=== PATIENT | female | born 1995 | race Caucasian/White ===

== ENCOUNTER → 2019-12-31 16:57 | Outpatient (CLI) | payer OTHER, SELFPAY ==
[2019-12-31 14:38] VITALS: BMI 34.4
[2020-01-03 15:22] LABS: HPV Reflexed? NOT INDICATED
== END ==
PROVIDERS: PCP Family Medicine; Referring Provider Nurse Practitioner Women's Health; Visit Provider Nurse Practitioner Women's Health
DX: Z12.4 Encounter for screening for malignant neoplasm of cervix (principal)
CPT/HCPCS: 88175; G0145

== ENCOUNTER → 2021-04-15 10:42 | Outpatient (CLI) | payer OTHER, SELFPAY | PROVIDERS: Visit Provider Family Medicine | DX: Z23 Encounter for immunization (principal) | CPT/HCPCS: 0004A; 91300 ==

== ENCOUNTER → 2022-07-13 | Outpatient (CLI) | payer OTHER, SELFPAY ==
[2022-07-13 10:43] LABS: Mucous, Urine 0 SEEN /hpf (<or=2+); Red Blood Cells-Urine 0 SEEN /hpf (0-5)
[2022-07-13 10:47] LABS: Color, Urine Yellow (Yellow); Glucose, Dipstick Normal (Normal); Ketone-Dipstick Negative (Negative); Leukocyte Esterase-Dipstick 25 /ul (Negative); Nitrite-Dipstick Negative (Negative); Occult Blood-Urine 25 /ul (Negative); Protein-Dipstick 15 mg/dl (Negative); Urine Bilirubin Dipstick Negative (Negative); Urine Clarity Clear (Clear); Urine Urobilinogen Normal (Normal)
[2022-07-13 10:55] LABS: Bacteria 1+ /hpf (None Seen); Squamous Epithelial Cells - UA 0-5 SEEN /hpf (5-10); White Blood Cells 5-10 SEEN /hpf (0-5)
== END | disposition home or self-care (01) ==
PROVIDERS: PCP Student in an Organized Health Care Education/Training Program; Visit Provider Physician Assistant Surgical
DX: R30.0 Dysuria (principal)
CPT/HCPCS: 81001; 87086; 87088; 87186

== ENCOUNTER → 2022-07-30 | Outpatient (CLI) | payer OTHER, SELFPAY | END | disposition home or self-care (01) | LOC: PAVLAB 07:46 | PROVIDERS: PCP Student in an Organized Health Care Education/Training Program; Referring Provider Nurse Practitioner Women's Health; Visit Provider Nurse Practitioner Women's Health | DX: N92.6 Irregular menstruation, unspecified (principal) | CPT/HCPCS: 36415 ==

== ENCOUNTER → 2022-08-17 | Outpatient (CLI) | payer OTHER, SELFPAY ==
[2022-08-17 12:07] LABS: Progesterone Level 0.52 ng/mL (See Comment)
== END | disposition home or self-care (01) ==
LOC: PAVLAB 10:57
PROVIDERS: PCP Student in an Organized Health Care Education/Training Program; Referring Provider Nurse Practitioner Women's Health; Visit Provider Nurse Practitioner Women's Health
DX: N92.6 Irregular menstruation, unspecified (principal)
CPT/HCPCS: 36415; 84144

== ENCOUNTER → 2022-09-08 | Outpatient (CLI) | payer OTHER, SELFPAY ==
[2022-09-08 08:42] LABS: Progesterone Level 8.34 ng/mL (See Comment)
== END | disposition home or self-care (01) ==
LOC: PAVLAB 07:53
PROVIDERS: PCP Student in an Organized Health Care Education/Training Program; Referring Provider Nurse Practitioner Women's Health; Visit Provider Nurse Practitioner Women's Health
DX: N92.6 Irregular menstruation, unspecified (principal)
CPT/HCPCS: 36415; 84144

== ENCOUNTER → 2022-09-16 | Outpatient (CLI) | payer OTHER, SELFPAY ==
[2022-09-16 13:31] LABS: hCG Titer Quant., Serum 13 mIU/mL (1-3)
== END | disposition home or self-care (01) ==
LOC: PAVLAB 12:37
PROVIDERS: PCP Student in an Organized Health Care Education/Training Program; Referring Provider Obstetrics & Gynecology; Visit Provider Obstetrics & Gynecology
DX: N91.2 Amenorrhea, unspecified (principal)
CPT/HCPCS: 36415; 84702

== ENCOUNTER → 2022-09-18 | Outpatient (CLI) | payer OTHER, SELFPAY ==
[2022-09-18 08:49] LABS: hCG Titer Quant., Serum 36 mIU/mL (1-3)
== END | disposition home or self-care (01) ==
LOC: LAB 07:35
PROVIDERS: PCP Student in an Organized Health Care Education/Training Program; Referring Provider Obstetrics & Gynecology; Visit Provider Obstetrics & Gynecology
DX: N91.2 Amenorrhea, unspecified (principal)
CPT/HCPCS: 36415; 84702

== ENCOUNTER → 2022-10-14 | Outpatient (CLI) | payer OTHER, SELFPAY ==
[2022-10-18 07:07] LABS: Chlamydia By Nucleic Acid AMP Negative (Negative); Gonococcus By Nucleic Acid AMP Negative (Negative)
[2022-10-25 19:02] LABS: HPV Reflexed? NOT INDICATED
== END | disposition home or self-care (01) ==
LOC: LABSPEC 12:05
PROVIDERS: PCP Student in an Organized Health Care Education/Training Program; Referring Provider Obstetrics & Gynecology; Visit Provider Obstetrics & Gynecology
DX: Z34.90 Encounter for supervision of normal pregnancy, unspecified, unspecified trimester (principal)
CPT/HCPCS: 87086; 87088; 87491; 87591; 88175; G0145

== ENCOUNTER → 2022-10-28 | Outpatient (CLI) | payer OTHER, SELFPAY ==
[2022-10-28 10:08] LABS: Absolute Lymphocyte Count 1.44 X10^3/uL (0.83-4.51); Absolute Neutrophil Count 6.5 X10^3/uL (2.0-7.7); Basophil# 0.06 X10^3/uL; Basophil% 0.7 % (0-1); Eosinophil# 0.24 X10^3/uL; Eosinophils% 2.7 % (0-5); Hemoglobin 12.4 g/dL (12.0-15.0); Lymphocyte # 1.44 X10^3/ul (0.83-4.51); Lymphocyte % 15.9 % (19-41); Mean Corp Hgb Conc 31.8 g/dL (32-36); Mean Corpuscular Hgb 27.3 pg (27.0-32.0); Mean Corpuscular Volume 85.9 fL (81-99); Mean Platelet Vol. 9.9 fl (6.2-12.0); Monocyte# 0.72 X10^3/uL; NRBC Flagged by Analyzer 0 % (0-5); Neutrophil # 6.52 X10^3/uL (2.7-7.7); Platelet Count 303 K/mm3 (150-450); RBC Distribution Width CV 13.8 % (11.6-14.6); RBC Distribution Width SD 43.1 fl (35.1-43.9); Red Blood Count 4.54 M/mm3 (4.2-5.4)
[2022-10-28 10:14] LABS: Glucose Challenge Gest 1H 50g 83 mg/dL (70-140)
[2022-10-28 10:31] LABS: NATERA MAILED SPECIMEN
[2022-10-28 11:07] LABS: HIV - WCH Non-Reactive (Nonreactive); Hepatitis B Surface Antigen Non-Reactive (Nonreactive); Hepatitis C Antibody Non-Reactive (Nonreactive); Rubella IgG Reactive (Nonreactive); Syphilis Antibodies Non-reactive
== END | disposition home or self-care (01) ==
LOC: PAVLAB 09:10
PROVIDERS: PCP Student in an Organized Health Care Education/Training Program; Referring Provider Obstetrics & Gynecology; Visit Provider Obstetrics & Gynecology
DX: Z34.81 Encounter for supervision of other normal pregnancy, first trimester (principal); Z31.430 Encounter of female for testing for genetic disease carrier status for procreative management
CPT/HCPCS: 36415; 82950; 85025; 86703; 86762; 86780; 86803; 86850; 86900; 86901; 87340

== ENCOUNTER → 2022-11-08 | Outpatient (CLI) | payer OTHER, SELFPAY ==
[2022-11-08 17:18] LABS: NATERA MAILED SPECIMEN
== END | disposition home or self-care (01) ==
LOC: LAB 16:14
PROVIDERS: PCP Student in an Organized Health Care Education/Training Program; Referring Provider Obstetrics & Gynecology; Visit Provider Obstetrics & Gynecology
DX: Z34.81 Encounter for supervision of other normal pregnancy, first trimester (principal); Z3A.00 Weeks of gestation of pregnancy not specified
CPT/HCPCS: 36415

== ENCOUNTER → 2022-12-02 | Outpatient (CLI) | payer OTHER, SELFPAY | END | disposition home or self-care (01) | LOC: LABSPEC 15:40 | PROVIDERS: PCP Student in an Organized Health Care Education/Training Program; Referring Provider Obstetrics & Gynecology; Visit Provider Obstetrics & Gynecology | DX: R30.0 Dysuria (principal) | CPT/HCPCS: 87086; 87088 ==

== ENCOUNTER → 2023-02-28 | Outpatient (CLI) | payer OTHER, SELFPAY ==
[2023-02-28 10:27] LABS: Absolute Lymphocyte Count 1.26 X10^3/uL (0.83-4.51); Absolute Neutrophil Count 8.5 X10^3/uL (2.0-7.7); Basophil# 0.06 X10^3/uL; Basophil% 0.6 % (0-1); Eosinophil# 0.07 X10^3/uL; Eosinophils% 0.7 % (0-5); Hematocrit 36.9 % (37-47); Hemoglobin 11.6 g/dL (12.0-15.0); Lymphocyte # 1.26 X10^3/ul (0.83-4.51); Lymphocyte % 11.8 % (19-41); Mean Corp Hgb Conc 31.4 g/dL (32-36); Mean Corpuscular Hgb 27.2 pg (27.0-32.0); Mean Corpuscular Volume 86.4 fL (81-99); Mean Platelet Vol. 10.2 fl (6.2-12.0); Monocyte% 6.6 % (0-10); NRBC Flagged by Analyzer 0 % (0-5); Neutrophil # 8.49 X10^3/uL (2.7-7.7); Neutrophil % 79.5 % (47-70); Platelet Count 318 K/mm3 (150-450); RBC Distribution Width CV 13.9 % (11.6-14.6); RBC Distribution Width SD 43.4 fl (35.1-43.9); Red Blood Count 4.27 M/mm3 (4.2-5.4); White Blood Count 10.7 K/mm3 (4.4-11.0)
[2023-02-28 11:26] LABS: HIV - WCH Non-Reactive (Nonreactive); Syphilis Antibodies Non-reactive
[2023-02-28 11:29] LABS: Glucose Challenge Gest 1H 50g 106 mg/dL (70-140)
[2023-02-28 19:09] LABS: Progesterone Level 74.26 ng/mL (See Comment)
== END | disposition home or self-care (01) ==
LOC: LAB 09:28
PROVIDERS: Nurse Practitioner Women's Health; PCP Student in an Organized Health Care Education/Training Program; Visit Provider Advanced Practice Midwife
DX: O09.90 Supervision of high risk pregnancy, unspecified, unspecified trimester (principal); Z3A.00 Weeks of gestation of pregnancy not specified
CPT/HCPCS: 36415; 82950; 84144; 85025; 86703; 86780

== ENCOUNTER → 2023-03-16 | Outpatient (CLI) | payer OTHER, SELFPAY | END | disposition home or self-care (01) | LOC: LABSPEC 16:42 | PROVIDERS: PCP Student in an Organized Health Care Education/Training Program; Referring Provider Registered Nurse; Visit Provider Registered Nurse | DX: N89.8 Other specified noninflammatory disorders of vagina (principal) | CPT/HCPCS: 87070; 87205 ==

== ENCOUNTER → 2023-05-03 | Outpatient (CLI) | payer OTHER, SELFPAY | END | disposition home or self-care (01) | LOC: LABSPEC 16:54 | PROVIDERS: PCP Student in an Organized Health Care Education/Training Program; Referring Provider Obstetrics & Gynecology; Visit Provider Obstetrics & Gynecology | DX: O09.90 Supervision of high risk pregnancy, unspecified, unspecified trimester (principal); Z3A.00 Weeks of gestation of pregnancy not specified | CPT/HCPCS: 87081 ==

== ENCOUNTER 2023-05-24 12:47 | Inpatient (IN) | payer OTHER, SELFPAY ==
[2023-05-24] VITALS (55 sets, daily range): BP systolic 111–151; BP diastolic 55–94; PULSE 84–155; TEMP 36.6–37.7; O2SAT 85–99; BMI 40.9
[2023-05-24] MEDS: Lactated Ringers 1,000 ML 50 ML IV (12:25)
[2023-05-24 12:43] LABS: Hemoglobin 12.8 g/dL (12.0-15.0); Mean Corp Hgb Conc 31.2 g/dL (32-36); Mean Corpuscular Hgb 25.9 pg (27.0-32.0); Mean Platelet Vol. 11.6 fl (6.2-12.0); Platelet Count 305 K/mm3 (150-450); RBC Distribution Width CV 15.1 % (11.6-14.6); RBC Distribution Width SD 44.8 fl (35.1-43.9); Red Blood Count 4.94 M/mm3 (4.2-5.4); White Blood Count 11.1 K/mm3 (4.4-11.0)
[2023-05-24 12:49] LABS: AST(SGOT) 23 U/L (15-37); Alanine Aminotransfer ALT/SGPT 21 U/L (13-56); Creatinine, Serum 0.56 mg/dL (0.55-1.02); EST Glomerular Filtration Rate 135 mL/min (>60); Est Glom Filt Rate - Afr Amer 164 mL/min (>60); Estimated Creatinine Clearance 123.72 ml/min; Uric Acid 4.3 mg/dL (2.6-6.0)
[2023-05-24 13:15] LABS: Protein, Urine (Random) 15.1 mg/dL (<11.9); Protein:Creat Ratio 250 mg/g CRE (0-200)
[2023-05-24] MEDS: LACTATED RINGERS 500 ML 999 ML IV (13:19)
[2023-05-24 13:45] LABS: Syphilis Antibodies Non-reactive
[2023-05-24] MEDS: fentaNYL-bupivacaine (epidural) 100 ML BAG EPIDURAL ×3 (14:46→23:56)
[2023-05-24] MEDS: Lactated Ringers 1,000 ML 999 ML IV (14:54)
--- NOTE | 2023-05-24 15:07 | EKG12_ITS ---
Test Reason : Blood Pressure : / mmHG Vent. Rate : 117 BPM Atrial Rate : 117 BPM P-R Int : 140 ms QRS Dur : 080 ms QT Int : 314 ms P-R-T Axes : 048 052 024 degrees QTc Int : 438 ms Sinus tachycardia Nonspecific T wave abnormality Abnormal ECG No previous ECGs available Confirmed by JAMES ORTIZ, KYLER ([id number]), film and video editor REGAN CHAVEZ ([id number]) on 05/26/2023 11:23:53 AM Referred By: Lori Petit Confirmed By:KYLER RAMIREZ MD
[2023-05-24] MEDS: CHLORHEXIDINE GLUC 2% CLOTH 1 EACH TOWELETTE TOPICAL (15:11)
--- NOTE | 2023-05-24 18:26 | PCM.HOSP.N ---
Hospitalist Note Called to look at an EKG ordered for tachycardia. Patient not having any chest pain or shortness of breath. EKG done only for tachycardia noted on vital signs. Patient is here with active labor. EKG is sinus tachycardia with a heart rate of 117. Intervals were normal. Patient had some mild nonspecific ST wave flattening in the lateral leads but no signs of acute ischemia or otherwise. We were not consulted for any medical management otherwise only asked to read the EKG.
[2023-05-24] MEDS: Mag Hydrox/Al Hydrox/Simeth 30 ML UDC PO (18:35)
[2023-05-24] MEDS: Oxytocin 15 Units/NS 250ml 15 UNITS/250 ML IV.SOLN 2 UNITS IV (18:45)
[2023-05-24] MEDS: Lactated Ringers 1,000 ML 200 ML IV (19:57)
[2023-05-25] VITALS (37 sets, daily range): BP systolic 89–139; BP diastolic 44–66; PULSE 78–114; RESP 16–18; TEMP 36.3–36.9; O2SAT 96–100
[2023-05-25] MEDS: Mag Hydrox/Al Hydrox/Simeth 30 ML UDC PO (00:19)
[2023-05-25] MEDS: Lactated Ringers 1,000 ML 200 ML IV (00:45)
--- NOTE | 2023-05-25 02:32 | HP.PCM.OB_ITS ---
HPI - General General Date of Admission: 05/24/23 HPI Narrative KOSTAS EDDY, is a 27 F who presents IAL reguar ctx and 4 cm dilated, elevate dbps Maternal Data Information FATIMAH Calculator Estimated Delivery Date Method Current WG Current Estimate 05/26/23 LMP (Certain) 39w 6d Other Estimates 05/28/23 Ultrasound #1 39w 4d PFSH PFSH Medical History (Updated 05/25/23 @ 02:[address] Lori Petit MD) Infertility Tinea corporis Home Medications prenat.vits,henry,fzx-srmf-ogjke 1 tab PO DAILY 06/15/22 [History Last Taken 05/23/23] Allergy/AdvReac Type Severity Reaction Status Date / Time cat dander Allergy Mild Other Verified 05/24/23 11:59 house dust Allergy Mild Other Verified 05/24/23 11:59 tree and shrub pollen Allergy Mild Other Verified 05/24/23 11:59 Family History Mother Hypertension Grandmother Hypertension Maternal Surgical History History of cholecystectomy [place] teeth extracted Social History adopted: No household members: spouse current occupational status: employed current occupation: Composite Assembler @ [employer] current occupational exposures/hazards: No pets and animals: Yes pets and animals: dog(s) history of recent travel: No sexually active: Yes Smoking Status: Never smoker alcohol intake: current details: social- not while substance use type: does not use well-balanced diet: daily or most days caffeine: Yes Type: carbonated beverages Number of servings: 1 eating out: 1-3 times/week during the past year weight has: remained stable what type of physical activity do you participate in: walking frequency: 3-4 times per week duration: 15-30 minutes/day anatoliy/buddhism: Restorationism seatbelt use: always do you feel safe at home: Yes additional social history: - JORDAN (HVAC) Patient is a financial aide advisor at [employer] History 1 Elective abortions Hx Para 0 Spontaneous abortions Hx # Term Pregnancies Ectopic pregnancies Hx # Pregnancies Multiple births # of living children Visit Details Expected Delivery Route/Plan Labor Preferences- CB/BF classes: done labor support person: JORDAN. sister in law roger labor intervention preferences: none pain management options preferred: epidural cut cord/dad catch: yes : [] PP control planned: [] discussed possible routes of delivery and associated risks: [] special requests: [] Plans Covid status: discussed Flu vaccine: discussed- at work given Tdap vaccine:given Rhogam: na LARC form signed: signed movement and labor precautions reviewed. Problem list reviewed and updated with the most current plan of care details and appropriate orders placed. Relevant counseling for the gestational age provided. Continue routine care and follow up unless otherwise noted in visit notes/problem list details OB Flowsheet Initial Weight: 195 lb Date -?-?-?-?-?-?-?-?-?-?-?-?- EGA Weight BP Urine Prot -?-?-?-?-?-?-?-?-?-?-?-?- Glucose FHR FuHt Pres Dilation -?-?-?-?-?-?-?-?-?-?-?-?- Effaced St Visit Note 10/14/22 -?-?-?-?-?-?-?-?-?-?-?-?- 8w 0d 195 lb (+0 oz) 105/63 -?-?-?-?-?-?-?-?-?-?-?-?- 180 -?-?-?-?-?-?-?-?-?-?-?-?- JV- Letrozole pr egnancy JV- Letrozole . sin gle live IUP measuring 7 weeks 5 days and consistent with LMP. FATIMAH 05/26/23. Desires NIPT and carrier testing 11/08/22 -?-?-?-?-?-?-?-?-?-?-?-?- 11w 4d 198 lb (+3 lb) 121/78 Negative -?-?-?-?-?-?-?-?-?-?-?-?- Negative 175 -?-?-?-?-?-?-?-?-?-?-?-?- KW- no cramping, VB. Repeat NIPT. discussed NOB labs. formal US ordered 12/06/22 -?-?-?-?-?-?-?-?-?-?-?-?- 15w 4d 203 lb 2 oz (+8 lb 2 oz) 97/61 Negative -?-?-?-?-?-?-?-?-?-?-?-?- Negative 150 -?-?-?-?-?-?-?-?-?-?-?-?- SM- no vb crampi ng 01/11/23 -?-?-?-?-?-?-?-?-?-?-?-?- 20w 5d 208 lb 2 oz (+13 lb 2 oz) 130/68 Negative -?-?-?-?-?-?-?-?-?-?-?-?- Negative 154 -?-?-?-?-?-?-?-?-?-?-?-?- MH-No VB, LOF. F eeling some flutters, ant placenta. No concerns 02/11/23 -?-?-?-?-?-?-?-?-?-?-?-?- 25w 1d 213 lb 4 oz (+18 lb 4 oz) 100/57 Negative -?-?-?-?-?-?-?-?-?-?-?-?- Negative 155 26 -?-?-?-?-?-?-?-?-?-?-?-?- KW-no lof/vb/ctx . good fm. discussed CB classes. 03/03/23 -?-?-?-?-?-?-?-?-?-?-?-?- 28w 0d 215 lb 8 oz (+20 lb 8 oz) 118/71 Negative -?-?-?-?-?-?-?-?-?-?-?-?- Negative 155 30 -?-?-?-?-?-?-?-?-?-?-?-?- Kw-no lof/vb/ctx . good fm. ordered breast pump from insurance. passed glucose test. 03/16/23 -?-?-?-?-?-?-?-?-?-?-?-?- 29w 6d 220 lb 6 oz (+25 lb 6 oz) 98/64 Negative -?-?-?-?-?-?-?-?-?-?-?-?- Negative 140 31 -?-?-?-?-?-?-?-?-?-?-?-?- LC- no lof/vb/ct x. good fm. tdap today, will get flu through work. genital culture and bv today for increased discharge and odor. 03/29/23 -?-?-?-?-?-?-?-?-?-?-?-?- 31w 5d 219 lb 6 oz (+24 lb 6 oz) 118/84 -?-?-?-?-?-?-?-?-?-?-?-?- 145 32 -?-?-?-?-?-?-?-?-?-?-?-?- SM- no vb lof go od fm no regular ctx 04/12/23 -?-?-?-?-?-?-?-?-?-?-?-?- 33w 5d 223 lb 4 oz (+28 lb 4 oz) 112/79 -?-?-?-?-?-?-?-?-?-?-?-?- 150 35 Cephalic -?-?-?-?-?-?-?-?-?-?-?-?- JV- no lof, vagi nal bleeding, or dec fm. vtx on exam but meausuring large. consider growth scan at 36/37 weeks . 04/27/23 -?-?-?-?-?-?-?-?-?-?--?-?- 35w 6d 226 lb 8 oz (+31 lb 8 oz) 114/72 -?-?-?-?-?-?-?-?-?-?-?-?- 140 37 Cephalic -?-?-?-?-?-?-?-?-?-?-?-?- SM- no vb lof g ood fm no regular ctx 05/03/23 -?-?-?-?-?-?-?-?-?-?-?-?- 36w 5d 228 lb (+33 lb) 110/70 Negative -?-?-?-?-?-?-?-?-?-?-?-?- Negative 160 38 Cephalic 0 .5 -?-?-?-?-?-?-?-?-?-?-?-?- -3 MH-No VB , LOF. Good FM. GBS. Denies concerns 05/11/23 -?-?-?-?-?-?-?-?-?-?-?-?- 37w 6d 230 lb 8 oz (+35 lb 8 oz) 117/74 Negative -?-?-?-?-?-?-?-?-?-?-?-?- Negative 154 37.5 Cephalic 1 -?-?-?-?-?-?-?-?-?-?-?-?- 80 -2 JV- no lof , vaginal bleeding, or dec fm. no complaints other than wishes to be induced close to due date to avoid being in hospitla on . will sweep membranes next week and plan for IOL around due date. 05/20/23 -?-?-?-?-?-?-?-?-?-?-?-?- 39w 1d 231 lb 4 oz (+36 lb 4 oz) 116/73 Negative -?-?-?-?-?-?-?-?-?-?-?-?- Negative 150 38 41 Cephalic 2 -?-?-?-?-?-?-?-?-?-?-?-?- 80 -1 JV- IOL se t up for next for elevated bmi. growth scan for earlier in the week NST FHR Rate Baby A Baseline: 140 Variability:: Moderate Accelerations:: 15 x 15 Decelerations:: None NST Reactive:: Yes FHR Category:: Category I Uterine Activity:: q3-5 ROS Constitutional Constitutional: Reports systems reviewed and no addt'l complaints, except as documented ENT HEENT: Reports systems reviewed and no addt'l complaints, except as documented Cardiovascular Cardiovascular: Reports systems reviewed and no addt'l complaints, except as documented Respiratory/Chest Respiratory/Chest: Reports systems reviewed and no addt'l complaints, except as documented Gastrointestinal Gastrointestinal: Reports systems reviewed and no addt'l complaints, except as documented and nausea; Denies abdominal pain Genitourinary Genitourinary: Reports systems reviewed and no addt'l complaints, except as documented, contractions Details: present and frequency (regular ) and movement Details: present Musculoskeletal Musculoskeletal: Reports systems reviewed and no addt'l complaints, except as d ocumented Integumentary Integumentary: Reports as per HPI Neurologic Neurologic: Reports systems reviewed and no addt'l complaints, except as documented Endocrine Endocrinology: Reports systems reviewed and no addt'l complaints, except as documented Vital Signs Vital Signs Vital Signs: 05/24/23 11:35 05/24/23 11:35 05/24/23 11:51 Temperature Temperature Source Pulse Rate 97 Blood Pressure 140/83 H 143/77 H BP Systolic 140 143 BP Diastolic 83 77 Pulse Ox 05/24/23 11:51 05/24/23 12:05 05/24/23 12:05 Temperature Temperature Source Pulse Rate 105 H 101 H Blood Pressure 143/87 H BP Systolic 143 BP Diastolic 87 Pulse Ox 05/24/23 12:21 05/24/23 12:21 05/24/23 12:35 Temperature Temperature Source Pulse Rate 107 H Blood Pressure 134/79 H 136/71 H BP Systolic 134 136 BP Diastolic 79 71 Pulse Ox 05/24/23 12:35 05/24/23 14:03 05/24/23 14:03 Temperature Temperature Source Pulse Rate 105 H 136 H Blood Pressure 135/78 H BP Systolic 135 BP Diastolic 78 Pulse Ox 05/24/23 14:03 05/24/23 14:03 05/24/23 14:07 Temperature Temperature Source Pulse Rate 119 H Blood Pressure 135/94 H BP Systolic 135 BP Diastolic 94 Pulse Ox 98 05/24/23 14:07 05/24/23 14:09 05/24/23 14:09 Temperature Temperature Source Pulse Rate 141 H 139 H Blood Pressure BP Systolic BP Diastolic Pulse Ox 98 05/24/23 14:13 05/24/23 14:13 05/24/23 14:14 Temperature Temperature Source Pulse Rate 134 H 151 H Blood Pressure 132/76 H BP Systolic 132 BP Diastolic 76 Pulse Ox 05/24/23 14:14 05/24/23 14:17 05/24/23 14:17 Temperature Temperature Source Pulse Rate 136 H Blood Pressure 131/57 H BP Systolic 131 BP Diastolic 57 Pulse Ox 97 05/24/23 14:19 05/24/23 14:19 05/24/23 14:22 Temperature Temperature Source Pulse Rate 145 H Blood Pressure 135/68 H BP Systolic 135 BP Diastolic 68 Pulse Ox 97 05/24/23 14:22 05/24/23 14:25 05/24/23 14:25 Temperature Temperature Source Pulse Rate 155 H 142 H Blood Pressure BP Systolic BP Diastolic Pulse Ox 97 05/24/23 14:27 05/24/23 14:27 05/24/23 14:30 Temperature Temperature Source Pulse Rate 144 H 133 H Blood Pressure 139/86 H BP Systolic 139 BP Diastolic 86 Pulse Ox 05/24/23 14:30 05/24/23 14:32 05/24/23 14:32 Temperature Temperature Source Pulse Rate 141 H Blood Pressure 137/84 H BP Systolic 137 BP Diastolic 84 Pulse Ox 97 05/24/23 14:35 05/24/23 14:35 05/24/23 14:37 Temperature Temperature Source Pulse Rate 143 H Blood Pressure 141/84 H BP Systolic 141 BP Diastolic 84 Pulse Ox 97 05/24/23 14:37 05/24/23 14:40 05/24/23 14:40 Temperature Temperature Source Pulse Rate 141 H 136 H Blood Pressure BP Systolic BP Diastolic Pulse Ox 98 05/24/23 14:42 05/24/23 14:42 05/24/23 14:45 Temperature Temperature Source Pulse Rate 137 H 131 H Blood Pressure 138/83 H BP Systolic 138 BP Diastolic 83 Pulse Ox 05/24/23 14:45 05/24/23 14:48 05/24/23 14:48 Temperature Temperature Source Pulse Rate 126 H Blood Pressure 151/91 H BP Systolic 151 BP Diastolic 91 Pulse Ox 98 05/24/23 14:50 05/24/23 14:50 05/24/23 14:53 Temperature Temperature Source Pulse Rate 124 H Blood Pressure 132/84 H BP Systolic 132 BP Diastolic 84 Pulse Ox 99 05/24/23 14:53 05/24/23 14:55 05/24/23 14:55 Temperature Temperature Source Pulse Rate 120 H 126 H Blood Pressure BP Systolic BP Diastolic Pulse Ox 98 05/24/23 14:57 05/24/23 14:57 05/24/23 14:59 Temperature Temperature Source Temporal Pulse Rate 125 H Blood Pressure 138/88 H BP Systolic 138 BP Diastolic 88 Pulse Ox 05/24/23 14:59 05/24/23 15:00 05/24/23 15:00 Temperature 99.0 F Temperature Source Pulse Rate 129 H Blood Pressure BP Systolic BP Diastolic Pulse Ox 98 05/24/23 15:05 05/24/23 15:05 05/24/23 11:39 Temperature Temperature Source Pulse Rate 125 H Blood Pressure BP Systolic BP Diastolic Pulse Ox 98 98 05/24/23 11:39 05/24/23 14:19 05/24/23 14:26 Temperature 99.5 F H Temperature Source Pulse Rate 130 H 128 H Blood Pressure BP Systolic BP Diastolic Pulse Ox 05/24/23 15:10 05/24/23 15:10 05/24/23 15:15 Temperature Temperature Source Pulse Rate 120 H 116 H Blood Pressure BP Systolic BP Diastolic Pulse Ox 98 05/24/23 15:15 05/24/23 15:24 05/24/23 15:24 Temperature Temperature Source Pulse Rate 122 H Blood Pressure BP Systolic BP Diastolic Pulse Ox 99 85 05/24/23 15:24 05/24/23 15:28 05/24/23 15:28 Temperature Temperature Source Pulse Rate 117 H Blood Pressure BP Systolic BP Diastolic Pulse Ox 99 99 05/24/23 15:33 05/24/23 15:33 05/24/23 15:38 Temperature Temperature Source Pulse Rate 116 H 110 H Blood Pressure BP Systolic BP Diastolic Pulse Ox 99 05/24/23 15:38 05/24/23 15:43 05/24/23 15:43 Temperature Temperature Source Pulse Rate 110 H Blood Pressure BP Systolic BP Diastolic Pulse Ox 99 99 05/24/23 15:48 05/24/23 15:48 05/24/23 15:53 Temperature Temperature Source Pulse Rate 109 H 115 H Blood Pressure BP Systolic BP Diastolic Pulse Ox 99 05/24/23 15:53 05/24/23 15:59 05/24/23 15:59 Temperature Temperature Source Pulse Rate 122 H Blood Pressure 130/74 H BP Systolic 130 BP Diastolic 74 Pulse Ox 99 05/24/23 16:00 05/24/23 16:00 05/24/23 17:44 Temperature 98.9 F Temperature Source Temporal Pulse Rate Blood Pressure 126/62 H BP Systolic 126 BP Diastolic 62 Pulse Ox 05/24/23 17:44 05/24/23 17:45 05/24/23 17:45 Temperature Temperature Source Pulse Rate 99 131 H Blood Pressure BP Systolic BP Diastolic Pulse Ox 99 05/24/23 17:45 05/24/23 17:45 05/24/23 17:45 Temperature 97.9 F Temperature Source Temporal Pulse Rate 113 H Blood Pressure BP Systolic BP Diastolic Pulse Ox 05/24/23 18:32 05/24/23 18:32 05/24/23 18:34 Temperature Temperature Source Pulse Rate 97 Blood Pressure 111/69 BP Systolic 111 BP Diastolic 69 Pulse Ox 98 05/24/23 18:34 05/24/23 18:34 05/24/23 18:34 Temperature 98.6 F Temperature Source Temporal Pulse Rate 107 H Blood Pressure BP Systolic BP Diastolic Pulse Ox 05/24/23 19:40 05/24/23 19:40 05/24/23 19:39 Temperature Temperature Source Pulse Rate 96 Blood Pressure 139/68 H BP Systolic 139 BP Diastolic 68 Pulse Ox 98 05/24/23 19:40 05/24/23 19:40 05/24/23 20:38 Temperature 99.3 F H Temperature Source Temporal Pulse Rate 84 Blood Pressure BP Systolic BP Diastolic Pulse Ox 05/24/23 20:38 05/24/23 20:38 05/24/23 20:38 Temperature Temperature Source Temporal Pulse Rate Blood Pressure 133/75 H BP Systolic 133 BP Diastolic 75 Pulse Ox 91 05/24/23 20:38 05/24/23 20:38 05/24/23 20:38 Temperature 99.8 F H Temperature Source Pulse Rate 98 Blood Pressure BP Systolic BP Diastolic Pulse Ox 97 05/24/23 21:35 05/24/23 21:35 05/24/23 21:35 Temperature Temperature Source Temporal Pulse Rate 96 Blood Pressure 130/85 H BP Systolic 130 BP Diastolic 85 Pulse Ox 05/24/23 21:35 05/24/23 21:35 05/24/23 22:38 Temperature 99.0 F Temperature Source Temporal Pulse Rate Blood Pressure BP Systolic BP Diastolic Pulse Ox 99 05/24/23 22:39 05/24/23 22:39 05/24/23 22:38 Temperature Temperature Source Pulse Rate 96 Blood Pressure 127/80 H BP Systolic 127 BP Diastolic 80 Pulse Ox 96 05/24/23 22:38 05/24/23 23:37 05/24/23 23:37 Temperature 99.7 F H Temperature Source Temporal Pulse Rate 128 H Blood Pressure BP Systolic BP Diastolic Pulse Ox 05/24/23 23:37 05/24/23 23:37 05/24/23 23:38 Temperature 98.8 F Temperature Source Pulse Rate Blood Pressure 112/55 L BP Systolic 112 BP Diastolic 55 Pulse Ox 96 05/24/23 23:38 Temperature Temperature Source Pulse Rate 91 Blood Pressure BP Systolic BP Diastolic Pulse Ox Weight Weight: 231 lb Body Mass Index (BMI) 40.9 Physical Exam Const alert, oriented x3 and healthy appearing Constitutional Narrative: uncomfortable with contractions HEENT normocephalic and moist oral mucous membranes Head and Scalp: atraumatic Neck full ROM, no lymphadenopathy, supple and thyroid normal General: trachea midline Thyroid: thyroid normal Lymph Lymphatic: no lymphadenopathy noted Chest inspection of chest normal Resp normal respiratory effort Cardio regular rate GI normal to inspection, nondistended, normoactive bowel sounds, soft to palpation and non-tender Inspection: gravid external exam normal Bimanual Exam - Vag & Uterus: uterus non-tender Manual OB Exam: estimated gestational size appropriate, presentation cephalic, dilated, effaced and station Extremity normal to inspection General Extremity: Negative for edema Skin no rashes or lesions noted Neuro deep tendon reflexes 2+ bilaterally Motor Exam: strength 5/5 throughout and clonus absent Psych mental status grossly normal Labs Labs Labs: Blood Type O POSITIVE Antibody Screen NEGATIVE Hct 41.0 % (37-47) Hgb 12.8 g/dL (12.0-15.0) Obstetrics Ultrasound Syphilis Total Ab Non-reactive Rubella IgG Antibody Reactive (Nonreactive) Hep Bs Antigen Non-Reactive (Nonreactive) Hepatitis C Antibody Non-Reactive (Nonreactive) Chlamydia DNA (ROBERTA) Negative (Negative) N.gonorrhoeae DNA (ROBERTA) Negative (Negative) HIV 1&2 Antibody Non-Reactive (Nonreactive) Glucose 1 Hr 50 gm 106 mg/dL (70-140) Miscellaneous Test Assessment & Plan (1) Gestational hypertension: (2) with history of infertility: QUALIFIERS: Trimester: second trimester Qualified Code(s): O09.02 - Supervision of with history of infertility, second trimester COMMENT: femara to conceive (3) Obesity affecting : QUALIFIERS: Trimester: second trimester Obesity type affecting : unspecified obesity Qualified Code(s): O99.212 - Obesity complicating , second trimester COMMENT: encourage healthy weight gain. Hx of large babies in family (4) Supervision of high risk , antepartum: COMMENT: PRR , FATIMAH 05/26/23, girl Taryn AJ (5) : QUALIFIERS: Weeks of gestation: 39 weeks Qualified Code(s): Z3A.39 - 39 weeks gestation of COMMENT: GBS Negative, nl GCT, anatomy nl, low risk NIPT on repeat. carrier testing neg. . declined AFP screen. PLAN: Plan admit IAL exp management epidural elevated heart rate- ekg done
--- NOTE | 2023-05-25 02:33 | EX.PCM.OBRPT ---
Assessment & Plan (1) Gestational hypertension: (2) with history of infertility: QUALIFIERS: Trimester: second trimester Qualified Code(s): O09.02 - Supervision of with history of infertility, second trimester COMMENT: femara to conceive (3) Obesity affecting : QUALIFIERS: Obesity type affecting : unspecified obesity Trimester: second trimester Qualified Code(s): O99.212 - Obesity complicating , second trimester COMMENT: encourage healthy weight gain. Hx of large babies in family (4) Supervision of high risk , antepartum: COMMENT: PRR , FATIMAH 05/26/23, girl Taryn AJ (5) : QUALIFIERS: Weeks of gestation: 39 weeks Qualified Code(s): Z3A.39 - 39 weeks gestation of COMMENT: GBS Negative, nl GCT, anatomy nl, low risk NIPT on repeat. carrier testing neg. . declined AFP screen. (6) Vaginal delivery: COMMENT: SM IAL ghtn girl Taryn 39 Maternal Data Information FATIMAH Calculator Estimated Delivery Date Method Current WG Current Estimate 05/26/23 LMP (Certain) 39w 6d Other Estimates 05/28/23 Ultrasound #1 39w 4d Vaginal Delivery Operative Information Date of Procedure: 05/25/23 Pre-Operative Diagnosis: see a/p diagnoses Post-Operative Diagnosis: same Surgery / Procedure Performed: Spontaneous Vaginal Delivery Type of Anesthesia: Epidural Special Medications: none Estimated Blood Loss: 300 Fluids Replaced: crystalloid Findings Description of Procedure: Patient began pushing and delivered the head in the DAVE presentation. The head was delivered atraumatically and a loose nuchal cord ?1 was identified and the infant delivered through without complication. The anterior and posterior shoulders delivered without complication followed by the rest of the infant and the was placed on the maternal abdomen. Delayed cord clamping was employed for approximately 60 seconds. Cord was clamped and cut and gentle traction was applied to the cord and the placenta delivered spontaneously immediately following it was noted to be intact with three-vessel cord. The perineum and vagina were inspected and noted to have a first degree perineal laceration which was repaired in the usual fashion with 3-0 vicryl rapide. . EBL was 300. Patient and infant tolerated delivery well. Amniotic Fluid Description: Clear Placental Delivery Description: Spontaneous Placenta Disposition: [facility] Cord Vessel Description: 3 Vessels Cord Entanglement: Around neck x 1, loose Delayed Cord Clamping: Yes Post Vaginal Delivery Medications Given After Delivery: IV Pitocin Episiotomy Description: None Complication Complications: None Procedures Urinary/Genital [id number]: [id number] Vaginal Delivery [facility]
--- NOTE | 2023-05-25 02:35 | DCINST_ITS ---
Discharge Instructions Diet Discharge Diet: No restrictions Activity Discharge Activity: Return to Normal Activity, May Not Drive (while taking narcotic pain medications.) and May Shower May resume sexual activity in: 4-6 weeks Dressing / Incision Call your doctor if your incision/area has: Continuous Slow Oozing, Sudden Increased Bleeding, Increased Pain/ Swelling, Increased Redness and Foul Smelling Discharge Follow Up Care Please Follow Up With: Lori Petit MD When: Call [phone] to make an appointment with your doctor in 6 weeks. If you had elevated blood pressure or 4th degree laceration, you will need to be seen in 2 weeks. Test Results: Test results from this visit will be discussed in further detail at your follow- up appointment, if applicable. Discharge Plan Admission Admit Date/Time: 05/24/23 12:47 Attending Provider: Lori Petit Primary Care Provider: Kathy Chaney Discharge Orders/Prescriptions Prescriptions: No Action prenat.vits,henry,lkz-ssth-drpft Tablet 1 tab PO DAILY Referrals / Follow Up: Kathy Chaney MD [Primary Care Provider] - Disposition Disposition (needs filled in before D/C Order can be placed): Home, Self Care
[2023-05-25] MEDS: Oxytocin 15 Units/NS 250ml 15 UNITS/250 ML IV.SOLN 83 UNITS IV (03:35)
[2023-05-25] MEDS: Acetaminophen 500 MG Tablet 1000 MG PO ×3 (04:53→19:51)
[2023-05-25] MEDS: 0.9% Saline Lock 10 ML Syringe IV (06:35)
[2023-05-25] MEDS: Benzocaine/Lanolin/Aloe Vera 1 SPRAY EACH TOPICAL ×2 (06:35→19:48)
[2023-05-25] MEDS: Naproxen 500 MG Tablet PO ×2 (06:35→13:04)
[2023-05-25] MEDS: Senna/Docusate Sodium 1 Tablet PO (20:09)
[2023-05-26] MEDS: Naproxen 500 MG Tablet PO ×2 (02:26→11:40)
[2023-05-26 04:21] VITALS: BP 106/59; PULSE 80; RESP 16; TEMP 36.6
--- NOTE | 2023-05-26 07:28 | PCM.PN.OB ---
Subjective Subjective Patient doing well without complaints. Tolerating PO. Ambulating and voiding without difficulty. Feeding well. Denies chest pain, shortness of breath, calf pain/swelling, fevers, chills, lightheadedness. Objective Data Objective Data Vital Signs: Vital Signs Temp Pulse Resp BP Pulse Ox O2 Del Method 97.9 F 80 16 106/59 L 98 Room Air 05/26/23 04:21 05/26/23 04:21 05/26/23 04:21 05/26/23 04:21 05/25/23 05:00 05/26/23 04:21 Oxygen Delivery Method Room Air Weight: 231 lb Body Mass Index (BMI) 40.9 Intake & Output: Intake and Output for Last 24 Hours 05/24/23 05/25/23 05/26/23 23:59 23:59 23:59 Intake Total 2932.34 / 2932.34 1873.33 / 1873.33 Output Total 3100 / 3100 2900 / 2900 Balance -167.66 / -167.66 -1026.67 / -1026.67 Lab / Micro Data Attestation: I reviewed the patient's lab results. 05/24/23 12:25 05/24/23 12:25 ROS Constitutional Constitutional: Reports systems reviewed and no addt'l complaints, except as documented; Denies anorexia or headache(s) Cardiovascular Cardiovascular: Reports systems reviewed and no addt'l complaints, except as documented; Denies dizziness, dyspnea, nausea or tachypnea Respiratory/Chest Respiratory/Chest: Reports systems reviewed and no addt'l complaints, except as documented; Denies cough, dyspnea, shortness of breath at rest or tachypnea Gastrointestinal Gastrointestinal: Reports systems reviewed and no addt'l complaints, except as documented; Denies abdominal pain, constipation or nausea Genitourinary Genitourinary: Reports systems reviewed and no addt'l complaints, except as documented; Denies burning urination, difficulty urinating, dysuria, urinary frequency or urinary incontinence Musculoskeletal Musculoskeletal: Reports systems reviewed and no addt'l complaints, except as documented Integumentary Integumentary: Reports systems reviewed and no addt'l complaints, except as documented Neurologic Neurologic: Reports systems reviewed and no addt'l complaints, except as documented; Denies abnormal speech, dizziness or headache(s) Psychiatric Psychiatric: Reports systems reviewed and no addt'l complaints, except as documented Endocrine Endocrinology: Reports systems reviewed and no addt'l complaints, except as documented Hematologic/Lymphatic Hematologic/Lymphatic: Reports systems reviewed and no addt'l complaints, except as documented Physical Exam Const alert, oriented x3 and no apparent distress Neck full ROM Resp normal respiratory effort, normal air movement and no retractions Effort and Inspection: able to speak in complete sentences and symmetric chest movement GI soft to palpation Bladder / Kidney Exam: bladder normal to palpation Uterus Palpation: uterus fundus firm Extremity normal to inspection and full ROM Psych mental status grossly normal, thought process normal and cooperative Assessment & Plan (1) Vaginal delivery: COMMENT: MESSI MCNULTY IAYesi ghtn girl Taryn 38 PLAN: s/p PPD # 1 1. routine post delivery care 2. breast feeding- support given 3. rh positive 4. rubella immune 5. Discharge home (2) Gestational hypertension: Charges/Coding Multi Select Codes Urinary/Genital Urinary/Genital CPT Codes: No Charge
--- NOTE | 2023-05-26 07:30 | DCINST_ITS ---
Discharge Instructions Diet Discharge Diet: No restrictions Activity Discharge Activity: Return to Normal Activity May resume sexual activity in: 4-6 weeks Dressing / Incision Call your doctor if your incision/area has: Continuous Slow Oozing, Sudden Increased Bleeding, Increased Pain/ Swelling, Increased Redness and Foul Smelling Discharge Call your doctor if you observe: Fever of 101 or Higher, Coldness, Increased Pain, Numbness or Tingling, Change in Color, Inability to urinate, Inability to have a bowel movement, Using more than 1 pad per hour, Shortness of breath, Dizz iness, Fainting spells, Swelling in the ankles, Chest pain, Increased palpitations (irregular heartbeat), Calf discomfort and Uncontrolled pain Follow Up Care Please Follow Up With: Lori Petit MD When: Please call the office to schedule your follow up appointment in 6 weeks. If you had high blood pressure please call to schedule an appointment in 2 weeks. continue to monitor blood pressure at home for the next 2 weeks and send to office. call if bp is 150/90 or greater or have new onset headache, dizziness, or blurred vision. Test Results: Test results from this visit will be discussed in further detail at your follow- up appointment, if applicable. Discharge Plan Admission Admit Date/Time: 05/24/23 12:47 Attending Provider: Lori Petit Primary Care Provider: Kathy Chaney Discharge Orders/Prescriptions Prescriptions: No Action prenat.vits,henry,[id number]-[id number] Tablet 1 tab PO DAILY Referrals / Follow Up: Kathy Chaney MD [Primary Care Provider] - Disposition Disposition (needs filled in before D/C Order can be placed): Home, Self Care
[2023-05-26 08:14] VITALS: BP 105/72; PULSE 82; RESP 16; TEMP 36.6; O2SAT 96
[2023-05-26] MEDS: Senna/Docusate Sodium 1 Tablet PO (08:23)
[2023-05-26] MEDS: Acetaminophen 500 MG Tablet 1000 MG PO (08:24)
[2023-05-26 13:20] VITALS: BP 110/70; PULSE 90; RESP 16; TEMP 37.2; O2SAT 96
== END 2023-05-26 13:30 | disposition home or self-care (01) | DRG 807 ==
LOC: WPOUT 12:48 → WP 12:48
PROVIDERS: Admitting Provider Obstetrics & Gynecology; PCP Student in an Organized Health Care Education/Training Program; Referring Provider Obstetrics & Gynecology; Visit Provider Obstetrics & Gynecology
DX: O13.4 Gestational [pregnancy-induced] hypertension without significant proteinuria, complicating childbirth (principal); Z37.0 Single live birth; O69.81X0 Labor and delivery complicated by cord around neck, without compression, not applicable or unspecified; O99.214 Obesity complicating childbirth; O99.892 Other specified diseases and conditions complicating childbirth; R00.0 Tachycardia, unspecified; O70.0 First degree perineal laceration during delivery; Z3A.39 39 weeks gestation of pregnancy
CPT/HCPCS: 59025; 59050; 82565; 82570; 84156; 84450; 84460; 84550; 85027; 86780; 86850; 86900; 86901; 93005; 99221; J7120; A4216; G0378

== ENCOUNTER → 2023-05-24 | Outpatient (CLI) | payer OTHER, SELFPAY ==
--- NOTE | 2023-05-24 10:13 | US_ITS ---
STUDY: SECOND AND THIRD TRIMESTER OBSTETRICAL ULTRASOUND REASON FOR EXAM: Female, 27 years old growth LMP: August 19, 2022. TECHNIQUE: Transabdominal TECHNICAL QUALITY: Adequate. PRIOR ULTRASOUND: None. FINDINGS: There is a single intrauterine fetus. The fetus is in a cephalic presentation. There is demonstrated cardiac activity with a heart rate of 162 bpm. There is a normal amniotic fluid volume. The largest amniotic fluid pocket measures 4.2 cm. The amniotic fluid index (SAMANTHA) is 11.2 cm. The placenta is anterior in location and is not low lying. There are Grade 1 placental changes. The cervical length was not measured due to head position. The adnexal regions are not visualized. BIOMETRY: BPD: 9.4 cm: 38 weeks, 1 days HC: 34.1 cm: 39 weeks, 2 days AC: 33.2 cm: 37 weeks, 1 days FL: 7.6 cm: 38 weeks, 5 days CI: 78 FL/BPD: 80.9 FL/HC: FL/AC: 22.8 HC/AC: 1.0 age by current US: 38 weeks, 3 days. FATIMAH by current US: June 04, 2023. Estimated weight: 3338 grams, +/- 501 grams, 31.4 %. Age by LMP: 39 weeks, 5 days. FATIMAH by LMP: May 26, 2023. US/OB Limited With Biometrics IMPRESSION: Single live uterine gestation with a mean gestational age of 38 weeks and 3 days. Electronically Signed: Kamran Gurrola MD at 13:32 EST ,
== END | disposition home or self-care (01) ==
LOC: US 10:13
PROVIDERS: PCP Student in an Organized Health Care Education/Training Program; Referring Provider Obstetrics & Gynecology; Visit Provider Obstetrics & Gynecology
DX: O26.849 Uterine size-date discrepancy, unspecified trimester (principal); Z3A.00 Weeks of gestation of pregnancy not specified
CPT/HCPCS: 76816